=== PATIENT | female | born 1995 | race Caucasian/White ===

== ENCOUNTER 2021-10-09 07:26 | Day surgery (SDC) | payer OTHER ==
[2021-10-09 07:59] VITALS: BMI 35.1
== END 2021-10-09 09:20 | disposition home or self-care (01) ==
LOC: CSHLD/OP 07:26
PROVIDERS: ATTEND Obstetrics & Gynecology
DX: O47.1 False labor at or after 37 completed weeks of gestation (principal); O48.0 Post-term pregnancy; Z3A.40 40 weeks gestation of pregnancy
CPT/HCPCS: 99283

== ENCOUNTER 2021-10-09 20:08 | Inpatient (IN) | payer OTHER ==
[~2021-10-09 20:08] MED LIST: Bupivacaine 0.25% HCL 30 ML VIAL ONE; Bupivacaine PF 0.5% 30 ML VIAL ONE
[2021-10-09] MEDS ORDERED: Ibuprofen 800 MG TAB PO PRN (20:44)
[2021-10-09] MEDS ORDERED: Carboprost 250 MCG/ML AMP IM PRN (20:44)
[2021-10-09] MEDS ORDERED: hydrALAZINE 20 MG/ML VIAL SLOW IVP PRN (20:44)
[2021-10-09] MEDS ORDERED: Lidocaine 1% (PF) 30 ML VIAL SC PRN (20:44)
[2021-10-09] MEDS ORDERED: Ondansetron PF 4 MG/2 ML Vial IVP PRN ×2 (20:44→22:52)
[2021-10-09] MEDS ORDERED: Diphenoxylate HCl/Atropine Tablet PO PRN (20:44)
[2021-10-09] MEDS ORDERED: Methylergonovine 0.2 MG/ML VIAL IM PRN (20:44)
[2021-10-09] MEDS ORDERED: Misoprostol 200 MCG TAB PR PRN (20:44)
[2021-10-09] MEDS ORDERED: Promethazine HCl 25 MG/ML VIAL IM PRN ×2 (20:44→22:52)
[2021-10-09] MEDS ORDERED: NS w/ Oxytocin 30 units 500 ML IV SCH (21:00)
[2021-10-09 21:04] VITALS: BMI 35.1
[2021-10-09] MEDS ORDERED: Fentanyl 2 mcg/Bup 0.1% Cadd 100 ML ONE (21:29)
[2021-10-09 21:43] LABS: Mean Corpuscular HGB CONC 32.5 g/dL (32.0-36.0); Mean Corpuscular Hemoglobin 28.6 pg (27.0-33.0); Mean Platelet Volume 10.3 fl (7.4-10.4); Platelet Count 269 10x3/uL (150-450); RBC Distribution Width 12.9 % (11.5-14.5); Red Blood Cell (RBC) Count 3.84 10x6/uL (3.90-5.03); White Blood Cell (WBC) Count 10.5 10x3/uL (3.5-10.5)
[2021-10-09 21:56] LABS: Hep B Surf Ag Non-Reactive S/CO (NonReactive); Syphilis Antibody Nonreactive (Nonreactive); Syphilis Antibody Index 0.05 S/CO (<1.00 Non-Reactive)
[2021-10-09] MEDS ORDERED: Fentanyl 100 MCG/2 ML VIAL ONE (21:57)
[2021-10-09 22:07] LABS: HBSAg Index 0.24 S/CO (0-0.99)
[2021-10-09 22:31] LABS: SARS-CoV-2 NAA Rapid Test DETECTED (NotDetected)
[2021-10-09] MEDS ORDERED: ePHEDrine Sulfate 50 MG/10 ML VIAL SLOW IVP PRN (22:52)
[2021-10-09] MEDS ORDERED: Naloxone HCl 0.4 mg/ml Vial IVP PRN ×2 (22:52)
[2021-10-09] MEDS ORDERED: diphenhydrAMINE 50 MG/ML VIAL IVP PRN (22:52)
[2021-10-09] MEDS ORDERED: Acetaminophen 325 MG TAB PO PRN (22:52)
[2021-10-09] MEDS ORDERED: Hydrocerin (Eucerin) Cream 120 gm Jar TOP PRN (22:52)
[2021-10-09] MEDS ORDERED: Lactated Ringer's 500 ML IV PRN (22:52)
[2021-10-09] MEDS ORDERED: Fentanyl 2 mcg/Bupivacaine 0.1% Cassette 100 ML EPIDURAL SCH (23:00)
[2021-10-09] MEDS ORDERED: Communication Order-Pharmacy FS SCH (23:00)
[2021-10-10] MEDS ORDERED: NS w/ Oxytocin 30 units 500 ML IVPB SCH (09:00)
[2021-10-10] MEDS ORDERED: Lidocaine 1% (PF) 30 ML VIAL SC PRN (09:00)
[2021-10-10] MEDS ORDERED: NS w/ Oxytocin 30 units 500 ML IV SCH ×2 (09:00→14:19)
[2021-10-10] MEDS ORDERED: Benzocaine-Menthol 82.5 ML CAN TOP PRN (14:19)
[2021-10-10] MEDS ORDERED: hydrALAZINE 20 MG/ML VIAL SLOW IVP PRN (14:19)
[2021-10-10] MEDS ORDERED: Methylergonovine 0.2 MG/ML VIAL IM PRN (14:19)
[2021-10-10] MEDS ORDERED: Bisacodyl 10 MG SUPP PR PRN (14:19)
[2021-10-10] MEDS ORDERED: Misoprostol 200 MCG TAB VAG PRN (14:19)
[2021-10-10] MEDS ORDERED: Milk Of Magnesia 30 ML UDCUP PO PRN (14:19)
[2021-10-10] MEDS ORDERED: Boostrix 0.5 ML (Tdap) VIAL IM ONE (14:19)
[2021-10-10] MEDS ORDERED: Lanolin Ointment 7 GM TUBE TOP PRN (14:19)
[2021-10-10] MEDS ORDERED: Ondansetron PF 4 MG/2 ML Vial IVP PRN (14:19)
[2021-10-10] MEDS ORDERED: HYDROcodone/Acetaminophen 5/325 mg Tablet PO PRN ×2 (14:19)
[2021-10-10] MEDS ORDERED: Ibuprofen 800 MG TAB PO SCH (14:30)
[2021-10-10] MEDS: Ferrous Sulfate 325 MG TAB PO SCH (15:33)
[2021-10-10] MEDS: Ibuprofen 800 MG TAB PO SCH (21:35)
[2021-10-10] MEDS: Docusate 100 MG CAP PO SCH (21:35)
[2021-10-11] MEDS: Ibuprofen 800 MG TAB PO SCH ×3 (06:01→21:41)
[2021-10-11] MEDS: Docusate 100 MG CAP PO SCH ×2 (09:12→21:40)
[2021-10-11] MEDS: Ferrous Sulfate 325 MG TAB PO SCH ×2 (09:12→17:10)
[2021-10-11] MEDS: Prenatal Vitamin 1 TAB PO SCH (09:12)
[2021-10-12] MEDS: Ibuprofen 800 MG TAB PO SCH (05:55)
[2021-10-12] MEDS: Docusate 100 MG CAP PO SCH (09:22)
[2021-10-12] MEDS: Prenatal Vitamin 1 TAB PO SCH (09:22)
[2021-10-12] MEDS: Ferrous Sulfate 325 MG TAB PO SCH (09:23)
[2021-10-12 10:25] VITALS: BP 110/60; TEMP 98.7
== END 2021-10-12 12:55 | disposition home or self-care (01) | DRG 805 ==
LOC: CSHLD/OP 20:08 → CSHLD 21:11 → CSHPP 10-10 14:55
PROVIDERS: ADMIT Obstetrics & Gynecology; ATTEND Obstetrics & Gynecology
PROC: 10E0XZZ Delivery of Products of Conception, External Approach (ICD-10-PCS; principal; 2021-10-09)
DX: O69.81X0 Labor and delivery complicated by cord around neck, without compression, not applicable or unspecified (principal); U07.1 COVID-19; Z37.0 Single live birth; O98.52 Other viral diseases complicating childbirth; O70.0 First degree perineal laceration during delivery; Z3A.40 40 weeks gestation of pregnancy
CPT/HCPCS: 36415; 51702; 85027; 86780; 86850; 86900; 86901; 87340; 99285; J2590; S0020; U0002